=== PATIENT | female | born 1970 | race Caucasian/White ===

== ENCOUNTER → 2018-03-24 | Outpatient (CLI) | payer OTHER ==
--- NOTE | 2018-03-25 10:36 | MR ---
MR thoracic spine without contrast HISTORY: Pain Multiplanar multisequence imaging through the thoracic spine No comparisons Thoracic vertebral bodies show preserved height and alignment with exception of minimal retrolisthesi s grade 1 T11-12, there is mild anterior wedging T12 superior endplate anteriorly, only minimal. Sup erior endplate Schmorl's node also suspected. Mild kyphosis centered at T11-12. Some loss of disc hei ght and signal present at the intervertebral levels at T7-8, T8-9 as well as T11-12. Minimal broad-ba sed disc bulge T11-12 causes only slight anterior mass effect on the thecal sac. Thoracic cord signal is normal. There is no evident spinal stenosis or foraminal encroachment. No evident disc herniation . Some mild facet arthropathy change noted at the lower thoracic levels. Degenerative disc changes are noted incidentally in the lower cervical spine. IMPRESSION: Slight anterior wedging at superior endplate of T12 may be posttraumatic due to patient's remote history of trauma. Facet arthropathy changes. Mild degenerative disc changes.
== END | disposition home or self-care (01) ==
LOC: RADMRIMAIN 14:43
PROVIDERS: ATTEND Psychiatry & Neurology Pain Medicine
DX: M48.54XA Collapsed vertebra, not elsewhere classified, thoracic region, initial encounter for fracture (principal); M47.814 Spondylosis without myelopathy or radiculopathy, thoracic region; M46.84 Other specified inflammatory spondylopathies, thoracic region; Z88.0 Allergy status to penicillin; Z91.040 Latex allergy status; Z88.8 Allergy status to other drugs, medicaments and biological substances
CPT/HCPCS: 72146

== ENCOUNTER → 2018-03-25 | Outpatient (CLI) | payer OTHER ==
--- NOTE | 2018-03-25 22:11 | MR ---
EXAMINATION TYPE: MR brain wo/w con DATE OF EXAM: 03/25/2018 COMPARISON: NONE HISTORY: Headache unusual duration and Vision changes per order. TECHNIQUE: Multiplanar, multisequence images of the brain and brainstem is performed without and with IV contras t, utilizing 5 mL intravenous Gadavist . FINDINGS: Diffusion weighted images demonstrate no evidence of a recent infarct or other diffusion ab normality. There is no extra-axial fluid collection or significant white matter signal abnormality. The ventricular system and cisternal spaces are normal in size and appearance. The brain volume is age appropriate. Midline structures demonstrate normal morphology. The craniocervical junction appears within normal limits. Post contrast images demonstrate no abnormal enhancement. The dural venous sinuses appear pa tent. The visualized sinuses are clear and the globes are intact. IMPRESSION: No significant findings are seen to account for patient's symptoms.
== END | disposition home or self-care (01) ==
LOC: RADMRIMAIN 14:46
PROVIDERS: ATTEND Psychiatry & Neurology Pain Medicine
DX: H53.8 Other visual disturbances (principal); Z91.040 Latex allergy status; Z88.8 Allergy status to other drugs, medicaments and biological substances; Z88.0 Allergy status to penicillin
CPT/HCPCS: 70553; A9585

== ENCOUNTER → 2018-04-17 | Outpatient (CLI) | payer OTHER ==
--- NOTE | 2018-04-17 13:34 | CT ---
EXAMINATION TYPE: CT abdomen pelvis w con DATE OF EXAM: 04/17/2018 COMPARISON: None HISTORY: Abnormal lab values, weight loss. CT DLP: 289 mGycm CONTRAST: CT scan of the abdomen and pelvis is performed with Oral Contrast and with IV Contrast, patient injec sherwin with 100 mL of Isovue 300. FINDINGS: LUNG BASES-: No visible nodule. No infiltrate. LIVER/GB: No calcified gallstones. No space occupying hepatic lesion. Biliary tree is of normal ca liber. PANCREAS: No inflammation. No distinct mass. SPLEEN: No splenic enlargement. No lesion seen. ADRENALS: No nodule. No thickening. KIDNEYS/BLADDER: No hydronephrosis. No nephrolithiasis. No distinct renal mass. Urinary bladder g rossly unremarkable. BOWEL: Normal appendix. Normal bowel caliber. No inflammation. GENITAL ORGANS: Probable leiomyomatous change of the uterus. LYMPH NODES: No greater than 1cm abdominal or pelvic lymph nodes are appreciated. AORTA: No significant abnormality. OSSEOUS STRUCTURES: No significant abnormality is seen. OTHER: No significant additional abnormality is seen. IMPRESSION: 1. No evidence for adenopathy. 2.Probable leiomyomatous change of the uterus.
== END | disposition home or self-care (01) ==
LOC: RADCTMAIN 11:36
PROVIDERS: ATTEND Internal Medicine Hematology & Oncology
DX: R59.0 Localized enlarged lymph nodes (principal); Z88.0 Allergy status to penicillin; Z91.040 Latex allergy status; Z88.8 Allergy status to other drugs, medicaments and biological substances
CPT/HCPCS: 74177; Q9967

== ENCOUNTER → 2019-03-17 | Outpatient (CLI) | payer OTHER ==
--- NOTE | 2019-03-17 10:23 | US ---
EXAMINATION TYPE: US abdomen complete DATE OF EXAM: 03/17/2019 COMPARISON: CT abdomen and pelvis April 17, 2018 CLINICAL HISTORY: R10.33 Periumbilical pain. Weight loss, periumbilical pain EXAM MEASUREMENTS: Liver Length: 17.2 cm Gallbladder Wall: 0.2 cm CBD: 0.2 cm Spleen: 7.9 cm Right Kidney: 11.7 x 3.6 x 4.7 cm Left Kidney: 11.1 x 4.2 x 5.1 cm Pancreas: limited evaluation Liver: appears wnl Gallbladder: no evidence of stones Evidence for sonographic Hearn's sign: no CBD: wnl Spleen: wnl Right Kidney: no evidence of hydronephrosis Left Kidney: no evidence of hydronephrosis Upper IVC: wnl Abd Aorta: wnl The visualized liver is homogenous. The intrahepatic portion of the IVC and proximal abdominal aorta are within normal limits. There is no evidence of cholelithiasis. Common bile duct is unremarkable . The visualized portions of the pancreas are homogenous. The spleen is unremarkable. Kidneys are symmetric and free of hydronephrosis. No renal lesions are seen. IMPRESSION: No suspicious acute findings are evident.
== END | disposition home or self-care (01) ==
LOC: RADUSMAIN 09:00
PROVIDERS: ATTEND Internal Medicine Gastroenterology
DX: R10.33 Periumbilical pain (principal)
CPT/HCPCS: 76700